=== PATIENT | male | born 1950 | race Caucasian/White ===

== ENCOUNTER → 2016-10-14 | Outpatient (CLI) | payer OTHER | LOC: GMAL 11:34 | PROVIDERS: ATTEND Family Medicine | DX: Z12.5 Encounter for screening for malignant neoplasm of prostate (principal) ==

== ENCOUNTER → 2017-04-28 | Outpatient (CLI) | payer OTHER | END | disposition home or self-care (01) | LOC: GMAL 10:56 | PROVIDERS: ATTEND Family Medicine | DX: D51.3 Other dietary vitamin B12 deficiency anemia (principal); E55.9 Vitamin D deficiency, unspecified ==

== ENCOUNTER → 2018-05-03 | Outpatient (CLI) | payer MEDICARE | LOC: GMAL 10:39 | PROVIDERS: ATTEND Family Medicine | DX: D51.3 Other dietary vitamin B12 deficiency anemia (principal); R53.83 Other fatigue; E55.9 Vitamin D deficiency, unspecified; Z12.5 Encounter for screening for malignant neoplasm of prostate | CPT/HCPCS: 82306; 82607; 84443; G0103 ==

== ENCOUNTER → 2019-06-16 | Outpatient (CLI) | payer MEDICARE | LOC: GMAL 14:14 | PROVIDERS: ATTEND Family Medicine | DX: Z12.5 Encounter for screening for malignant neoplasm of prostate (principal); D51.3 Other dietary vitamin B12 deficiency anemia; I10 Essential (primary) hypertension; R53.83 Other fatigue; R73.09 Other abnormal glucose; E78.2 Mixed hyperlipidemia | CPT/HCPCS: 82607; 84443; G0103 ==

== ENCOUNTER → 2019-06-23 | Outpatient (CLI) | payer MEDICARE | LOC: GMAL 14:03 | PROVIDERS: ATTEND Family Medicine | DX: E83.42 Hypomagnesemia (principal) ==

== ENCOUNTER → 2019-12-05 | Outpatient (CLI) | payer MEDICARE | LOC: GMAL 11:25 | PROVIDERS: ATTEND Family Medicine | DX: E83.42 Hypomagnesemia (principal); I10 Essential (primary) hypertension ==

== ENCOUNTER → 2020-01-12 | Outpatient (CLI) | payer MEDICARE ==
--- NOTE | 2020-01-12 11:46 | US ---
EXAM DESCRIPTION: Aorta: Ultrasound. CLINICAL HISTORY: ABDOMINAL AORTIC ANEURYSM WITHOUT RUPTURE COMPARISON: None. TECHNIQUE: Transcutaneous scanning: Two-dimensional and Doppler modes. FINDINGS: Abdominal aorta diameter - Proximal: 2.9 x 2.1 cm. Mid: 2.4 x 1.9 cm. Distal: 2.2 x 1.5 cm. Common Iliac diameter -bilateral iliac arteries not well seen. Other: Atherosclerotic changes. IMPRESSION: 2.9 cm abdominal aortic aneurysm suspected, proximal abdominal aorta. [facility] Best Practice guidelines: Recommend follow-up every 5 years. Reference: J Am Wale Radiol 2013;10:789-794. Electronically signed by: Hugh Valdovinos MD 01/12/2020 11:45 AM CDT
== END ==
LOC: US 08:44
PROVIDERS: ATTEND Family Medicine
DX: I77.9 Disorder of arteries and arterioles, unspecified (principal)

== ENCOUNTER → 2020-06-18 | Outpatient (CLI) | payer MEDICARE | LOC: GMAL 15:09 | PROVIDERS: ATTEND Family Medicine | DX: R53.83 Other fatigue (principal); Z79.899 Other long term (current) drug therapy; R73.9 Hyperglycemia, unspecified; I10 Essential (primary) hypertension ==

== ENCOUNTER → 2020-10-09 | Outpatient (CLI) | payer MEDICARE | LOC: GMAL 11:24 | PROVIDERS: ATTEND Family Medicine | DX: Z12.5 Encounter for screening for malignant neoplasm of prostate (principal); E78.2 Mixed hyperlipidemia; I10 Essential (primary) hypertension | CPT/HCPCS: 83735; G0103 ==